=== PATIENT | male | born 1980 | race Caucasian/White ===

== ENCOUNTER 2017-10-17 23:57 | Emergency (ER) | payer BC, OTHER ==
[~2017-10-17] VITALS: Ht 193 cm; Wt 91.0 kg
[2017-10-18 00:41] VITALS: BP 162/98; PULSE 98; RESP 18; O2SAT 100
[2017-10-18 00:46] LABS: AUTOMATED NEUTROPHIL # 2.8 TH/MM3 (1.8-7.7); BASOPHIL # 0.1 TH/MM3 (0-0.2); EOSINOPHIL # 0.3 TH/MM3 (0-0.4); EOSINOPHIL % 4.4 % (0.0-4.0); HEMATOCRIT 49.6 % (39.0-51.0); HEMOGLOBIN 17.5 GM/DL (13.0-17.0); LYMPH % 42.4 % (9.0-44.0); LYMPHOCYTE # 2.7 TH/MM3 (1.0-4.8); MEAN CELL VOLUME 92.8 FL (80.0-100.0); MEAN CORPUSCULAR HEMOGLOBIN 32.8 PG (27.0-34.0); MEAN CORPUSCULAR HGB CONC 35.3 % (32.0-36.0); MEAN PLATELET VOLUME 7.5 FL (7.0-11.0); MONO % 8.5 % (0.0-8.0); MONOCYTE # 0.5 TH/MM3 (0-0.9); NEUT % 43.7 % (16.0-70.0); PLATELET COUNT 237 TH/MM3 (150-450); RED BLOOD COUNT 5.35 MIL/MM3 (4.50-5.90); RED CELL DISTRIBUTION WIDTH 13.9 % (11.6-17.2); WHITE BLOOD COUNT 6.4 TH/MM3 (4.0-11.0)
[2017-10-18 00:58] LABS: ALBUMIN 4.5 GM/DL (3.4-5.0); ALT (GPT) 81 U/L (12-78); AST (GOT) 68 U/L (15-37); BICARBONATE 21.7 MEQ/L (21.0-32.0); BLOOD UREA NITROGEN 11 MG/DL (7-18); CALCIUM 8.5 MG/DL (8.5-10.1); CHLORIDE 106 MEQ/L (98-107); CREATININE 1.06 MG/DL (0.60-1.30); GLOMERULAR FILTRATION RATE 78 ML/MIN (>89); GLUCOSE,RANDOM 76 MG/DL (74-106); SODIUM (NA) 143 MEQ/L (136-145)
--- NOTE | 2017-10-18 01:07 | PD ---
HPI Chief Complaint: Psychiatric Symptoms Time Seen by Provider: 00:12 Travel History International Travel<30 days: No Contact w/Intl Traveler<30days: No Traveled to known affect area: No History of Present Illness HPI Patient is 37-year-old male presenting to the emergency department under Chappell act for making suicidal statements. Per the Chappell act report patient contacted his friend via the phone and told her that he could not take this anymore, tell everyone goodbye. Simone's left him 2 days ago when he is having a hard time dealing with it. Simone's by himself and his parents house. His parents are in [place] be flying back tomorrow. He texted them saying to his mother "come home so I do not do something stupid, my head is not working". Also "I am going to take pills tired I cannot wait anymore". He denies any previous suicide attempt. He denies any psychiatric history. [facility] Past Medical History Medical History: Denies Significant Hx Diminished Hearing: No ?: Not Past Surgical History Surgical History: No Previous Surgery Social History Alcohol Use: Yes (OCC) Tobacco Use: No Substance Use: No Review of Systems Except as stated in HPI: all other systems reviewed are Neg Psychiatric: Positive: Depression, Suicidal Ideations Physical Exam Narrative GENERAL: Well-developed, well-nourished, alert male. Presenting in no acute distress. SKIN: Warm and dry. HEAD: Atraumatic. Normocephalic. EYES: Pupils equal and round. No scleral icterus. No injection or drainage. ENT: No nasal bleeding or discharge. Mucous membranes pink and moist. NECK: Trachea midline. No JVD. CARDIOVASCULAR: Regular rate and rhythm. RESPIRATORY: No accessory muscle use. Clear to auscultation. Breath sounds equal bilaterally. GASTROINTESTINAL: Abdomen soft, non-tender, nondistended. Hepatic and splenic margins not palpable. MUSCULOSKELETAL: Extremities without clubbing, cyanosis, or edema. No obvious deformities. NEUROLOGICAL: Awake and alert. No obvious cranial nerve deficits. Motor grossly within normal limits. Five out of 5 muscle strength in the arms and legs. Normal speech. PSYCHIATRIC: Appropriate mood and affect; insight and judgment normal. Data Data Last Documented VS Vital Signs Date Time Temp Pulse Resp B/P (MAP) Pulse Ox O2 Delivery O2 Flow Rate FiO2 10/18/17 00:41 98 18 162/98 (119) 100 Room Air Orders Orders Complete Blood Count With Diff (10/18/17:28) Comprehensive Metabolic Panel (10/18/17:) Thyroid Stimulating Hormone (10/18/17:) Urinalysis - C+S If Indicated (10/18/17:) Psych Screen (10/18/17:) Drug Screen, Random Urine (10/18/17:) Alcohol (Ethanol) (10/18/17:) Salicylates (Aspirin) (10/18/17:) Tylenol (Acetaminophen) (10/18/17:) Labs Laboratory Tests Test 10/18/17 00:30 White Blood Count 6.4 TH/MM3 Red Blood Count 5.35 MIL/MM3 Hemoglobin 17.5 GM/DL Hematocrit 49.6 % Mean Corpuscular Volume 92.8 FL Mean Corpuscular Hemoglobin 32.8 PG Mean Corpuscular Hemoglobin Concent 35.3 % Red Cell Distribution Width 13.9 % Platelet Count 237 TH/MM3 Mean Platelet Volume 7.5 FL Neutrophils (%) (Auto) 43.7 % Lymphocytes (%) (Auto) 42.4 % Monocytes (%) (Auto) 8.5 % Eosinophils (%) (Auto) 4.4 % Basophils (%) (Auto) 1.0 % Neutrophils # (Auto) 2.8 TH/MM3 Lymphocytes # (Auto) 2.7 TH/MM3 Monocytes # (Auto) 0.5 TH/MM3 Eosinophils # (Auto) 0.3 TH/MM3 Basophils # (Auto) 0.1 TH/MM3 CBC Comment DIFF FINAL Differential Comment Blood Urea Nitrogen 11 MG/DL Creatinine 1.06 MG/DL Random Glucose 76 MG/DL Total Protein 8.7 GM/DL Albumin 4.5 GM/DL Calcium Level 8.5 MG/DL Alkaline Phosphatase 62 U/L Aspartate Amino Transf (AST/SGOT) 68 U/L Alanine Aminotransferase (ALT/SGPT) 81 U/L Total Bilirubin 0.7 MG/DL Sodium Level 143 MEQ/L Potassium Level 3.8 MEQ/L Chloride Level 106 MEQ/L Carbon Dioxide Level 21.7 MEQ/L Anion Gap 15 MEQ/L Estimat Glomerular Filtration Rate 78 ML/MIN Thyroid Stimulating Hormone 3rd Gen 0.353 uIU/ML Acetaminophen Level LESS THAN 2.0 MCG/ML Ethyl Alcohol Level 316 MG/DL MDM Medical Decision Making Medical Screen Exam Complete: Yes Emergency Medical Condition: Yes Interpretation(s) Laboratory Tests Test 10/18/17 00:30 White Blood Count 6.4 TH/MM3 Red Blood Count 5.35 MIL/MM3 Hemoglobin 17.5 GM/DL Hematocrit 49.6 % Mean Corpuscular Volume 92.8 FL Mean Corpuscular Hemoglobin 32.8 PG Mean Corpuscular Hemoglobin Concent 35.3 % Red Cell Distribution Width 13.9 % Platelet Count 237 TH/MM3 Mean Platelet Volume 7.5 FL Neutrophils (%) (Auto) 43.7 % Lymphocytes (%) (Auto) 42.4 % Monocytes (%) (Auto) 8.5 % Eosinophils (%) (Auto) 4.4 % Basophils (%) (Auto) 1.0 % Neutrophils # (Auto) 2.8 TH/MM3 Lymphocytes # (Auto) 2.7 TH/MM3 Monocytes # (Auto) 0.5 TH/MM3 Eosinophils # (Auto) 0.3 TH/MM3 Basophils # (Auto) 0.1 TH/MM3 CBC Comment DIFF FINAL Differential Comment Blood Urea Nitrogen 11 MG/DL Creatinine 1.06 MG/DL Random Glucose 76 MG/DL Total Protein 8.7 GM/DL Albumin 4.5 GM/DL Calcium Level 8.5 MG/DL Alkaline Phosphatase 62 U/L Aspartate Amino Transf (AST/SGOT) 68 U/L Alanine Aminotransferase (ALT/SGPT) 81 U/L Total Bilirubin 0.7 MG/DL Sodium Level 143 MEQ/L Potassium Level 3.8 MEQ/L Chloride Level 106 MEQ/L Carbon Dioxide Level 21.7 MEQ/L Anion Gap 15 MEQ/L Estimat Glomerular Filtration Rate 78 ML/MIN Thyroid Stimulating Hormone 3rd Gen 0.353 uIU/ML Acetaminophen Level LESS THAN 2.0 MCG/ML Ethyl Alcohol Level 316 MG/DL Vital Signs Date Time Temp Pulse Resp B/P (MAP) Pulse Ox O2 Delivery O2 Flow Rate FiO2 10/18/17 00:41 98 18 162/98 (119) 100 Room Air Differential Diagnosis Mood disorder versus substance abuse versus suicidal ideations versus depression versus manipulation versus other Narrative Course Patient is 37-year-old male presenting to the emergency department under Chappell act for psychiatric evaluation. Mental health screening discussed with the patient. Psychiatric screen ordered. Labs reviewed, no acute findings identified. Patient's blood alcohol level is 316. Patient is medically cleared for psych eval Diagnosis Primary Impression: Medical clearance for psychiatric admission Condition: Stable Shakira Berg Oct 18, 2017 01:07
[2017-10-18 01:08] LABS: ACETAMINOPHEN LESS THAN 2.0 MCG/ML (10.0-30.0); ALKALINE PHOSPHATASE 62 U/L (45-117); TOTAL BILIRUBIN ADULT 0.7 MG/DL (0.2-1.0); TOTAL PROTEIN 8.7 GM/DL (6.4-8.2)
[2017-10-18 05:43] VITALS: BP 155/99; PULSE 101; RESP 18; O2SAT 96
[2017-10-18 06:32] LABS: BILIRUBIN, URINE NEG (NEG); BLOOD, URINE NEG (NEG); GLUCOSE,URINE NEG (NEG); HYALINE CAST, URINE 3 /lpf (RARE); KETONE, URINE 10 mg/dL (NEG); MUCUS URINE MOD /lpf (OCC); NITRITE,URINE NEG (NEG); URINE COLOR YELLOW (YELLW/STRAW); URINE LEUKOCYTE ESTERASE NEG (NEG)
[2017-10-18 13:50] VITALS: BP 142/86; PULSE 85; RESP 18; TEMP 98.9; O2SAT 99
--- NOTE | 2017-10-18 14:31 | PD ---
History of Present Illness Chief Complaint: Psychiatric Symptoms Time Seen by Provider: 13:50 Travel History International Travel<30 Days: No Contact w/Intl Traveler<30days: No Known affected area: No Legal Status Legal Status: Chappell Act Chappell Act Signed By: Micha Jenkins Chappell Act Comment: 2017 @ 2344 History of Present Illness: History of Present Illness HPI Patient is 37-year-old, , male with no previous psychiatric history, who in context of a marital argument and while under the influence of alcohol was placed under Chappell act and brought to [facility] for evaluation. The Chappell act alleges that the patient contacted a friend via phone and told her that he could not take this anymore and tell everyone goodbye. He also sent a text message to his mom stating "come home so I do not do something stupid. My head is not working. I am going to take pills and tired I cannot wait anymore." Patient did not make any attempt to harm himself. Patient presented with blood alcohol level of 316 on arrival to the ED. Patient was allowed to sober up clinically and secure environment and presented no behavioral concerns and no suicidality. EMR is reviewed. No previous contact with [facility] psychiatry Department. Patient is seen this afternoon. He is clinically sober. Dress and hospital scrubs with fair hygiene. Affect is appropriate. Adequate eye contact. His speech is clear, logical, normal rate and tone. His mood is slightly anxious as he does not feel he belongs here and wants to be discharged. There is no evidence of any psychosis, no paranoia, no delusions. He denies any significant symptoms of depression. He denies any suicidal or homicidal ideation, intent or plan. He insists that the statements that were made were taken out of context and out of proportion. He goes on to state that after he made the messages he went to sleep. He also states he has no reason to want to harm himself because he has a new job awaiting him in [place], he has" family that loves me and friends that care about me". He is also hopeful that he will be able to work things out with his . Telephone call to his father, Alvin at [phone]. He has no concern for his safety and that he feels safe if the patient is discharged home. He is travelling and is on his way home now. PFSH Past Medical History Medical History: Denies Significant Hx Diminished Hearing: No ?: Not Past Surgical History Surgical History: No Previous Surgery Psychiatric History Psychiatric History Hx Psychiatric Treatment: DENIES any. No previous suicide attempt. No history of self-injurious behavior. History of Inpatient Treatment: No Guns or firearms in home: No Social History 4 years. Has no children. 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 Hx Alcohol Use: Yes (. States that he only drinks occasionally. Denies daily use of alcohol) Hx Tobacco Use: No Hx Substance Use: No Substance Use Type: Alcohol Hx of Substance Use Treatment: No Family Psychiatric History Negative Allergies-Medications (Allergen,Severity, Reaction): Coded Allergies: No Known Allergies (Verified Allergy, Unknown, 10/18/17) Reported Meds & Prescriptions Reported Meds & Active Scripts Active No Active Prescriptions or Reported Medications Review of Systems Psychiatric: COMPLAINS OF: Anxiety Except as stated in HPI: all other systems reviewed are Neg Mental Status Examination Appearance: Appropriate (In [facility]), Disheveled Consciousness: Alert Orientation: x4 Motor Activity: Normal gait Speech: Unremarkable Language: Adequate Fund of Knowledge: Adequate Attention and Concentration: Adequate Memory: Unremarkable Mood: Appropriate Affect: Appropriate Thought Process & Associations: Intact, Logical, Goal directed Thought Content: Appropriate Hallucination Type: None Delusion Type: None Suicidal Ideation: No Suicidal Plan: No Suicidal Intention: No Homicidal Ideation: No Homicidal Plan: No Homicidal Intention: No Insight: Fair Judgment: Adequate [facility] Medical Decision Making Medical Record Reviewed: Yes Assessment/Plan Patient is 37-year-old, , male with no previous psychiatric history, who in context of a marital argument and while under the influence of alcohol was placed under Chappell act and brought to [facility] for evaluation. The patient presented with a blood alcohol level of 316. He was allowed to sober up in secure environment. After the patient was clinically sober he presents no evidence of unstable mental illness. There is no suicidal or homicidal ideation, intent or plan. He is future oriented and has adequate protective factors. Collateral information was obtained and his father has no concerns for the patient's safety if he were to be discharged. He understands that the statements were made while in contacts of alcohol intoxication. The patient at this time does not meet criteria for Chappell act. The Chappell act as lifted. He is provided psychoeducation. Psychiatric clear for discharge from the ED. Orders Orders Complete Blood Count With Diff (10/18/17 00:28) Comprehensive Metabolic Panel (10/18/17:28) Thyroid Stimulating Hormone (10/18/17:28) Urinalysis - C+S If Indicated (10/18/17:28) Psych Screen (10/18/17:) Drug Screen, Random Urine (10/18/17:28) Alcohol (Ethanol) (10/18/17 00:28) Salicylates (Aspirin) (10/18/17 00:28) Tylenol (Acetaminophen) (10/18/17 00:28) Diet Regular Basic (10/18/17 Breakfast) Diet Regular Basic (10/18/17 Lunch) Results Vital Signs Date Time Temp Pulse Resp B/P (MAP) Pulse Ox O2 Delivery O2 Flow Rate FiO2 10/18/17 13:50 98.9 85 18 142/86 (104) 99 Room Air 10/18/17 05:43 101 18 155/99 (117) 96 Room Air 10/18/17 00:41 98 18 162/98 (119) 100 Room Air Laboratory Tests Test 10/18/17 00:30 10/18/17 06:05 White Blood Count 6.4 Red Blood Count 5.35 Hemoglobin 17.5 Hematocrit 49.6 Mean Corpuscular Volume 92.8 Mean Corpuscular Hemoglobin 32.8 Mean Corpuscular Hemoglobin Concent 35.3 Red Cell Distribution Width 13.9 Platelet Count 237 Mean Platelet Volume 7.5 Neutrophils (%) (Auto) 43.7 Lymphocytes (%) (Auto) 42.4 Monocytes (%) (Auto) 8.5 Eosinophils (%) (Auto) 4.4 Basophils (%) (Auto) 1.0 Neutrophils # (Auto) 2.8 Lymphocytes # (Auto) 2.7 Monocytes # (Auto) 0.5 Eosinophils # (Auto) 0.3 Basophils # (Auto) 0.1 CBC Comment DIFF FINAL Differential Comment Blood Urea Nitrogen 11 Creatinine 1.06 Random Glucose 76 Total Protein 8.7 Albumin 4.5 Calcium Level 8.5 Alkaline Phosphatase 62 Aspartate Amino Transf (AST/SGOT) 68 Alanine Aminotransferase (ALT/SGPT) 81 Total Bilirubin 0.7 Sodium Level 143 Potassium Level 3.8 Chloride Level 106 Carbon Dioxide Level 21.7 Anion Gap 15 Estimat Glomerular Filtration Rate 78 Thyroid Stimulating Hormone 3rd Gen 0.353 Salicylates Level 5.5 Acetaminophen Level LESS THAN 2.0 Ethyl Alcohol Level 316 Urine Color YELLOW Urine Turbidity CLEAR Urine pH 6.0 Urine Specific [place] 1.014 Urine Protein TRACE Urine Glucose (UA) NEG Urine Ketones 10 Urine Occult Blood NEG Urine Nitrite NEG Urine Bilirubin NEG Urine Urobilinogen LESS THAN 2.0 Urine Leukocyte Esterase NEG Urine WBC 1 Urine Hyaline Casts 3 Urine Mucus MOD Microscopic Urinalysis Comment CULT NOT INDICATED Urine Opiates Screen NEG Urine Barbiturates Screen NEG Urine Amphetamines Screen NEG Urine Benzodiazepines Screen NEG Urine Cocaine Screen NEG Urine Cannabinoids Screen NEG Diagnosis Primary Impression: Medical clearance for psychiatric admission Additional Impression: Alcohol intoxication Psychiatrically Cleared: Yes Prescriptions No Active Prescriptions or Reported Meds Disposition: DISCHARGE HOME Condition: Stable Problem Qualifiers Additional Impression: Alcohol intoxication Qualified Codes: F10.920 - Alcohol use, unspecified with intoxication, uncomplicated Ashly Borrego [employer] Oct 18, 2017 14:31
--- NOTE | 2017-10-18 14:55 | PD ---
Physical Exam Date Seen by Provider: Oct 18, 2017 Time Seen by Provider: 14:53 Narrative 37-year-old male previously Chappell acted and medically cleared for psychiatric evaluation, has been seen and evaluated by psychiatric staff and deemed psychiatrically stable for discharge. Patient remains medically stable for discharge at this time. Follow-up will be based on psychiatric note. Data Data Last Documented VS Vital Signs Date Time Temp Pulse Resp B/P (MAP) Pulse Ox O2 Delivery O2 Flow Rate FiO2 10/18/17 14:49 10/18/17 13:50 98.9 85 18 99 Room Air Orders Orders Complete Blood Count With Diff (10/18/17 00:28) Comprehensive Metabolic Panel (10/18/17 00:28) Thyroid Stimulating Hormone (10/18/17 00:28) Urinalysis - C+S If Indicated (10/18/17 00:28) Psych Screen (10/18/17 00:28) Drug Screen, Random Urine (10/18/17 00:28) Alcohol (Ethanol) (10/18/17 00:28) Salicylates (Aspirin) (10/18/17 00:28) Tylenol (Acetaminophen) (10/18/17 00:28) Diet Regular Basic (10/18/17 Breakfast) Diet Regular Basic (10/18/17 Lunch) Labs Laboratory Tests Test 10/18/17 00:30 10/18/17 06:05 White Blood Count 6.4 TH/MM3 Red Blood Count 5.35 MIL/MM3 Hemoglobin 17.5 GM/DL Hematocrit 49.6 % Mean Corpuscular Volume 92.8 FL Mean Corpuscular Hemoglobin 32.8 PG Mean Corpuscular Hemoglobin Concent 35.3 % Red Cell Distribution Width 13.9 % Platelet Count 237 TH/MM3 Mean Platelet Volume 7.5 FL Neutrophils (%) (Auto) 43.7 % Lymphocytes (%) (Auto) 42.4 % Monocytes (%) (Auto) 8.5 % Eosinophils (%) (Auto) 4.4 % Basophils (%) (Auto) 1.0 % Neutrophils # (Auto) 2.8 TH/MM3 Lymphocytes # (Auto) 2.7 TH/MM3 Monocytes # (Auto) 0.5 TH/MM3 Eosinophils # (Auto) 0.3 TH/MM3 Basophils # (Auto) 0.1 TH/MM3 CBC Comment DIFF FINAL Differential Comment Blood Urea Nitrogen 11 MG/DL Creatinine 1.06 MG/DL Random Glucose 76 MG/DL Total Protein 8.7 GM/DL Albumin 4.5 GM/DL Calcium Level 8.5 MG/DL Alkaline Phosphatase 62 U/L Aspartate Amino Transf (AST/SGOT) 68 U/L Alanine Aminotransferase (ALT/SGPT) 81 U/L Total Bilirubin 0.7 MG/DL Sodium Level 143 MEQ/L Potassium Level 3.8 MEQ/L Chloride Level 106 MEQ/L Carbon Dioxide Level 21.7 MEQ/L Anion Gap 15 MEQ/L Estimat Glomerular Filtration Rate 78 ML/MIN Thyroid Stimulating Hormone 3rd Gen 0.353 uIU/ML Salicylates Level 5.5 MG/DL Acetaminophen Level LESS THAN 2.0 MCG/ML Ethyl Alcohol Level 316 MG/DL Urine Color YELLOW Urine Turbidity CLEAR Urine pH 6.0 Urine Specific [place] 1.014 Urine Protein TRACE mg/dL Urine Glucose (UA) NEG mg/dL Urine Ketones 10 mg/dL Urine Occult Blood NEG Urine Nitrite NEG Urine Bilirubin NEG Urine Urobilinogen LESS THAN 2.0 MG/DL Urine Leukocyte Esterase NEG Urine WBC 1 /hpf Urine Hyaline Casts 3 /lpf Urine Mucus MOD /lpf Microscopic Urinalysis Comment CULT NOT INDICATED Urine Opiates Screen NEG Urine Barbiturates Screen NEG Urine Amphetamines Screen NEG Urine Benzodiazepines Screen NEG Urine Cocaine Screen NEG Urine Cannabinoids Screen NEG MDM Medical Record Reviewed: Yes Supervised Visit with ELDER: Yes Narrative Course 37-year-old male previously Chappell acted and medically cleared for psychiatric evaluation, has been seen and evaluated by psychiatric staff and deemed psychiatrically stable for discharge. Patient remains medically stable for discharge at this time. Follow-up will be based on psychiatric note. Diagnosis Primary Impression: Medical clearance for psychiatric admission Additional Impression: Alcohol intoxication Qualified Codes: F10.920 - Alcohol use, unspecified with intoxication, uncomplicated [facility]errals: [facility] Patient Instructions: General Instructions Scripts No Active Prescriptions or Reported Meds Disposition: DISCHARGE HOME Condition: Stable Jabari Boss Oct 18, 2017 14:55
== END 2017-10-18 15:01 | disposition home or self-care (01) ==
LOC: NEPD 23:57 → NEPJ 10-18 15:01
DX: F10.920 Alcohol use, unspecified with intoxication, uncomplicated (principal); Y90.8 Blood alcohol level of 240 mg/100 ml or more
CPT/HCPCS: 80053; 80307; 81001; 84443; 85025; 99284